=== PATIENT | male | born 1995 | race Caucasian/White ===

== ENCOUNTER 2021-07-25 13:51 | Emergency (ER) | payer SELFPAY ==
[~2021-07-25] VITALS: Ht 170.2 cm; Wt 72.6 kg
--- NOTE | 2021-07-25 14:05 | NUR ---
BIBS FOR C/O LLQ ABDOMINAL PAIN 04/04, LUE NUMBNESS X 2 HOURS. WAS HAVING CHEST PAIN 1 HOUR THAT RESOLVE. 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 DENIES N/V AT THIS TIME. IN ROOM AIR AND DENIES SOB. RESPIRATION REGULAR AND UNLABORED. ATTACHED TO THE MONITOR.
--- NOTE | 2021-07-25 14:07 | NUR ---
IV LINE IS ESTABLISHED, BLOOD SPECIMEN COLLECTED AND SENT TO THE LAB. THE LINE IS SALINE LOCKED.
[2021-07-25] MEDS ORDERED: LORAZEPAM INJ 2 MG/ML VIAL IV ONE ×3 (14:30→20:00)
[2021-07-25] MEDS ORDERED: ONDANSETRON HCL/PF 4 MG/2 ML VIAL IVP ONE ×2 (14:30→16:30)
[2021-07-25] MEDS ORDERED: IV NS 0.9% 1,000 ML BAG IV ONE (14:30)
[2021-07-25] MEDS ORDERED: ONDANSETRON HCL/PF 4 MG/2 ML VIAL ONE ×2 (14:34→16:22)
[2021-07-25] MEDS ORDERED: LORAZEPAM INJ 2 MG/ML VIAL ONE ×2 (14:35→18:05)
[2021-07-25 14:58] LABS: BASOPHILS % (AUTO) 0.1 % (0.0-2.0); EOSINOPHILS % (AUTO) 0.4 % (0.0-6.0); HEMATOCRIT 48 % (39-51); HEMOGLOBIN 16.4 g/dL (13.5-17.5); LYMPHOCYTES # (AUTO) 1.6 K/uL (0.8-4.8); LYMPHOCYTES % (AUTO) 16.1 % (20.0-44.0); MEAN CORPUSCULAR HGB CONC 34 g/dl (31.0-36.0); MEAN CORPUSCULAR VOLUME 91 fL (80-96); MONOCYTES # (AUTO) 0.6 K/uL (0.1-1.30); MONOCYTES % (AUTO) 6.3 % (2.0-12.0); NEUTROPHILS # (AUTO) 7.4 K/uL (1.8-8.9); NEUTROPHILS % (AUTO) 77.1 % (43.0-81.0); PLATELET COUNT (AUTO) 213 K/uL (150-450); WHITE BLOOD COUNT (AUTO) 9.6 K/uL (4.3-11.0)
--- NOTE | 2021-07-25 15:07 | NUR ---
ASPHALT MACHINE OPERATOR AT THE BEDSIDE
[2021-07-25 15:17] LABS: CALCIUM, SERUM 9.1 mg/dL (8.5-10.1); CARBON DIOXIDE 25 mmol/L (21-32); CHLORIDE 99 mmol/L (98-107); CREATININE 1.2 mg/dL (0.6-1.3); GLUCOSE 132 mg/dL (74-106); POTASSIUM 3.5 mmol/L (3.5-5.1); SODIUM SERUM 132 mmol/L (136-145); UREA NITROGEN, BLOOD 18 mg/dL (7-18)
--- NOTE | 2021-07-25 15:30 | NUR ---
URINE COLLECTED AND SENT TO THE LAB
[2021-07-25 15:37] LABS: ALANINE AMINOTRANSFERASE 26 U/L (12-78); ALBUMIN 4.1 g/dL (3.4-5.0); ALKALINE PHOSPHATASE 75 U/L (46-116); ASPARTATE AMINOTRANSFERASE 19 U/L (15-37); BILIRUBIN,DIRECT 0.1 mg/dL (0.0-0.2); BILIRUBIN,TOTAL 0.6 mg/dL (0.2-1.0); LIPASE 57 U/L (73-393); TOTAL PROTEIN, SERUM 7.8 g/dL (6.4-8.2)
--- NOTE | 2021-07-25 16:05 | NUR ---
COVID SWAB DONE AND SENT TO THE LAB
[2021-07-25] MEDS ORDERED: MORPHINE SULFATE INJ 4 MG/ML DISP.SYRIN ONE (16:23)
[2021-07-25] MEDS ORDERED: MORPHINE SULFATE INJ 2 MG/ML DISP.SYRIN IV ONE (16:30)
[2021-07-25 16:37] LABS: BILIRUBIN,URINE NEGATIVE (NEGATIVE); COLOR,URINE YELLOW (YELLOW); LEUKOCYTE ESTERASE ,URINE NEGATIVE (NEGATIVE); NITRITE, URINE NEGATIVE (NEGATIVE); PROTEIN,URINE NEGATIVE (NEGATIVE); UGLUCOSE NEGATIVE (NEGATIVE); UROBILINOGEN,URINE 0.2 EU/dL (0.2)
[2021-07-25] MEDS ORDERED: IV NS 0.9% 500 ML BAG IV ONE (19:00)
--- NOTE | 2021-07-25 19:31 | NUR ---
REPORT GIVEN TO NURSE GAMA FOR MICHAEL
--- NOTE | 2021-07-25 20:32 | NUR ---
Patient discharged to home in stable condition. Written and verbal after care instructions given. Patient verbalizes understanding of instruction.IV removed. Catheter intact and site benign. Pressure and 4x4 applied to site. No bleeding noted. Pt ambulatory with a steady gait
[2021-07-25 20:33] VITALS: BP 130/77
== END 2021-07-25 20:35 | disposition home or self-care (01) ==
LOC: ER 13:52
DX: F41.9 Anxiety disorder, unspecified (principal); F15.90 Other stimulant use, unspecified, uncomplicated; R07.89 Other chest pain
CPT/HCPCS: 36415; 71045; 80048; 80076; 80307; 81003; 83690; 84484 ×2; 85025; 85378; 87426; 93005; 96361; 96374; 96375; 96376; 99285; C9803; J2060 ×2; J2270; J2405 ×2; J7030; J7040